=== PATIENT | female | born 2000 | race Caucasian/White ===

== ENCOUNTER 2020-12-27 20:29 | Emergency (ER) | payer OTHER ==
[2020-12-27 21:49] LABS: BASOPHIL 0.4 % (0-2); EOSINOPHIL 1.3 % (0-5); HCT 38.4 % (37.0-47.0); HGB 13.1 g/dl (12.5-16.0); MCH 29.6 pg (25.0-31.0); MCHC 34.1 g/dL (32.0-36.0); MCV 86.7 fL (78.0-100.0); MPV 10.2 fL (6.0-9.5); NEUTROPHIL 45.2 % (41-80); NRBC 0; PLT 238 K/uL (150-400); RBC 4.43 M/uL (4.20-5.40); RDW 12.7 % (11.5-14.0)
[2020-12-27 21:57] LABS: INR 1.03 (0.9-1.2); PROTHROMBIN TIME 12.8 SECONDS (11.4-13.6); PTT 32.9 SECONDS (22.2-34.7)
[2020-12-27 21:58] LABS: D-DIMER 0.32 ug/mLFEU (0.00-0.41)
[2020-12-27 22:29] LABS: ALBUMIN 3.2 g/dL (3.4-5.0); BILIRUBIN - TOTAL 0.2 mg/dL (0.2-1.0); BUN/CREAT RATIO (CALC) 18.5 RATIO; CREATININE 0.65 mg/dL (0.51-0.95); GLOBULIN (CALCULATION) 3.3 g/dL; POTASSIUM 3.5 mmol/L (3.5-5.1); TOTAL PROTEIN 6.5 g/dL (6.4-8.2)
[2020-12-27 22:55] LABS: BILIRUBIN NEGATIVE (NEGATIVE); BLOOD NEGATIVE Ery/uL (NEGATIVE); CLARITY CLEAR (CLEAR); COLOR YELLOW (YELLOW); GLUCOSE (U) NORMAL (NORMAL); LEUKOCYTES NEGATIVE Leu/uL (NEGATIVE); NITRITE NEGATIVE (NEGATIVE); PROTEIN NEGATIVE (NEGATIVE); SPECIFIC GRAVITY 1.025 (1.001-1.030); UROBILINOGEN 0.2 mg/dL (0.2-1.0)
[2020-12-27 22:56] LABS: AMPHETAMINES NEGATIVE (NEGATIVE); BARBITURATES NEGATIVE (NEGATIVE); ECSTASY (MDMA) NEGATIVE (NEGATIVE); MARIJUANA (THC) NEGATIVE (NEGATIVE); METHADONE NEGATIVE (NEGATIVE); OPIATES NEGATIVE (NEGATIVE); OXYCODONE NEGATIVE (NEGATIVE)
== END 2020-12-28 00:25 | disposition other institution (70) ==
LOC: FER 20:29
PROVIDERS: Emergency Medicine Emergency Medical Services
DX: R07.89 Other chest pain (principal); R20.2 Paresthesia of skin; R00.0 Tachycardia, unspecified; I11.9 Hypertensive heart disease without heart failure; E11.9 Type 2 diabetes mellitus without complications; K21.9 Gastro-esophageal reflux disease without esophagitis; J45.909 Unspecified asthma, uncomplicated; E66.01 Morbid (severe) obesity due to excess calories; Z86.16 Personal history of COVID-19; Z87.19 Personal history of other diseases of the digestive system; Z88.1 Allergy status to other antibiotic agents; Z79.84 Long term (current) use of oral hypoglycemic drugs; Z79.899 Other long term (current) drug therapy
CPT/HCPCS: 36415; 70450; 71045; 80053; 80305; 81003; 82550; 82607; 84484; 85025; 85379; 85610; 85730; 93005; J1885; J2060; J2270; J2405; J3486; J7030